=== PATIENT | female | born 1990 | race Caucasian/White ===

== ENCOUNTER 2023-05-30 12:55 | Emergency (ER) | payer OTHER, SELFPAY ==
[2023-05-30 13:08] VITALS: BP 135/83; PULSE 103; RESP 16; TEMP 36.3; O2SAT 98
--- NOTE | 2023-05-30 13:36 | ED.GENADULT ---
HPI - General Adult General Chief complaint: Skin/Abscess/Foreign Body Stated complaint: rash all over Source: patient Mode of arrival: ambulatory Limitations: no limitations History of Present Illness HPI narrative: Patient presents for evaluation of her rash for the last 3 days. She reports involved body surfaces being between and under her breasts, in gluteal folds and bilateral inguinal regions. No new lotions, soap, detergents or topical products. He child has ringworm. She is not diabetic. States involved surfaces are not overly pruritic. She indicates she tested positive for strep about 3 weeks ago was treated with penicillin. It sounds like her rash started after completing PCN. Her child was also recently diagnosed with mono. Related Data Home Medications Medication Instructions Recorded Confirmed sertraline 50 mg tablet mg 05/30/23 Allergies Allergy/AdvReac Type Severity Reaction Status Date / Time No Known Allergies Allergy Verified 05/30/23 13:07 Review of Systems Review of Systems: CONSTITUTIONAL: Denies fever, chills, or sweats. EYES: Denies visual changes, redness, or discharge. ENT: Denies rhinorrhea, congestion, sore throat, or otalgia. CARDIOVASCULAR: Denies chest pain, palpitations, or edema. RESPIRATORY: Denies cough or dyspnea. GASTROINTESTINAL: Denies abdominal pain, nausea, vomiting, or diarrhea. GENITOURINARY: Denies dysuria or hematuria. SKIN: Reports rash between and under the breasts, in gluteal folds and in inguinal regions bilaterally. MUSCULOSKELETAL: Denies back pain, joint pain, or myalgia. NEUROLOGIC: Denies headache, numbness, dizziness, or weakness. PSYCHIATRIC: Denies anxiety or depression. [facility] Past Medical History Medical History (Updated 05/30/23 @ 13:56 by NORI Mcadams, IRENA) No pertinent past medical history Surgical History Surgical History No pertinent past surgical history Family History Family History Mother Family history non-contributory Social History Social History (Updated 05/30/23 @ 13:41 by NORI Mcadams, BC) Gender identity (if verbalized by the patient): Female Spiritual care concerns: No Exam Narrative: GENERAL: Well-appearing, well-nourished, and in no acute distress. HEAD: Normocephalic, atraumatic. EYES: PERRLA and EOMI. ENT: Nares clear, no rhinorrhea or epistaxis. Mucous membranes moist. Oropharynx without tonsillar hypertrophy exudate or other lesions. Bilateral TMs pearly escobar nonbulging NECK: Supple. No adenopathy or masses. No carotid bruits or JVD CHEST: Clear to auscultation. No respiratory distress. No wheezes rales or rhonchi HEART: Regular rate and rhythm. No murmur heard. Normal peripheral pulses. ABDOMEN: Soft, nontender, nondistended, normal active bowel sounds. EXTREMITIES: Normal range of motion. No edema. SKIN: There is a 2 cm annular scaling lesion to the lateral aspect of the right leg. There are confluent areas of erythema and scaling noted between and under the bilateral breasts, in the gluteal folds, and also in the bilateral inguinal regions. NEURO: No focal deficits. Alert and oriented x3. PSYCH: Normal mood and affect. Course Course Emergency Course: This is a 33-year-old female who presented for evaluation of a rash. There is between her breasts, gluteal folds and inguinal region or consistent with tinea. Lesion on right thigh consistent with right. Will treat with ketoconazole. Norman here negative. Follow-up with primary provider. Go to the ER for worsening symptoms. Patient in agreement with plan care Level of Care: Express Care Visit Vital Signs Vital signs: Vital Signs Temperature 36.3 C L 05/30/23 13:08 Pulse Rate 103 H 05/30/23 13:08 Respiratory Rate 16 05/30/23 13:08 Blood Pressure 135/83 05/30/23 13:08 Pulse Oximetry 98
== END 2023-05-30 14:07 | disposition home or self-care (01) ==
PROVIDERS: Emergency Provider Nurse Practitioner; PCP Nurse Practitioner Family
DX: B35.9 Dermatophytosis, unspecified (principal)
CPT/HCPCS: 36416; 86308; 99213; G0463